=== PATIENT | female | born 2000 | race Caucasian/White ===

== ENCOUNTER → 2024-05-29 17:34 | Outpatient (REF) | payer OTHER, SELFPAY | LOC: MRI 17:34 | PROVIDERS: ATTENDING PHYSICIAN Physician Assistant Surgical; FAMILY PHYSICIAN Nurse Practitioner Adult Health | DX: M54.12 Radiculopathy, cervical region (principal); R07.89 Other chest pain | CPT/HCPCS: 71550; 72141 ==